=== PATIENT | female | born 1960 | race American Indian/Alaskan Native ===

== ENCOUNTER 2016-12-27 20:41 | Inpatient (IN) | payer SELFPAY ==
[2016-12-27 22:09] LABS: Basophils % (Auto) 0.8 % (0.0-1.8); Eosinophils % (Auto) 0.9 % (0.0-4.3); Hemoglobin 10.1 gm/dl (10.1-14.3); Mean Corpuscular HGB Conc 33 % (30-34); Mean Corpuscular Hemoglobin 32 pg (28-32); Mean Corpuscular Volume 97 fl (79-97); Platelet Count 133 K/mm3 (140-440); Red Blood Count 3.19 M/mm3 (3.65-5.03); Red Cell Distribution Width 16.1 % (13.2-15.2)
[2016-12-27 22:12] LABS: INR 0.98 (0.87-1.13)
--- NOTE | 2016-12-27 22:14 | Cat Scan Report ---
FINAL REPORT PROCEDURE: CT HEAD/BRAIN WO CON TECHNIQUE: Computerized tomography of the head was performed without contrast material. HISTORY: suspected stroke COMPARISON: No prior studies are available for comparison. FINDINGS: Skull and scalp: There is focal left posterior scalp swelling or soft tissue thickening. There is no skull fracture.. Paranasal sinuses: Normal. Ventricles and subarachnoid spaces: There is mild central and cortical atrophy. There is no hydrocephalus or asymmetry.. Cerebrum: No evidence of hemorrhage, acute infarction or mass . Cerebellum and brainstem: No evidence of hemorrhage, acute infarction or mass. Vasculature: Normal. Comments: There is mild chronic deep white matter ischemic gliosis bilaterally.. IMPRESSION: Left posterior scalp swelling. There is no skull fracture. There is age-appropriate involutional change. There is no hemorrhage, edema, mass, mass effect or midline shift.
[2016-12-27 22:16] LABS: Anion Gap 24 mmol/L; Blood Urea Nitrogen 9 mg/dL (7-17); Calcium 8.6 mg/dL (8.4-10.2); Carbon Dioxide 20 mmol/L (22-30); Chloride 93.5 mmol/L (98-107); Glucose 79 mg/dL (65-100); Potassium 4.1 mmol/L (3.6-5.0); Sodium 133 mmol/L (137-145)
[2016-12-27 22:22] LABS: Creatine Kinase 125 units/L (30-135)
[2016-12-27 23:23] LABS: Urine Drugs of Abuse Note Disclamer
[2016-12-28 00:22] LABS: Bacteria,Urine 1+ /HPF (Negative); Bilirubin,Urine NEG (Negative); Blood,Urine NEG (Negative); Ketones,Urine NEG (Negative); Leukocyte Esterase,Urine NEG (Negative); Mucus,Urine FEW /HPF; Nitrite,Urine NEG (Negative); Protein,Urine <15 mg/dL mg/dL (Negative); Urobilinogen,Urine < 2.0 mg/dL (<2.0); WBC,Urine < 1.0 /HPF (0.0-6.0)
--- NOTE | 2016-12-28 00:40 | Emergency Department Report ---
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 On exam patient is awake alert and oriented 3 not in acute distress. States that she was eating dinner with her roommate around 4 PM. pt remembers waking up and states that her roommate informed her that she had lost consciousness for anywhere from 15-20 minutes at which point they called the ambulance. Patient states she had been drinking earlier. Denies any chest pain palpitations shortness of breath though states she has had some tingling sensation in her left upper extremity. Patient is not accompanied by any family members. She denies any abdominal pain nausea vomiting any dysuria or increased urinary frequency. Patient does state that approximately a week and a half ago she fell outside of her home and hit the back of her head and has had small lump on the back of her head since. Denies any bleeding or pus drainage from site. Denies any other drug use other than alcohol today and marijuana earlier this week. pt states she feels slightly intoxicated. I asked patient to see if she has any family contact subjective contact at this time patient states she does not. Patient states she has a daughter that lives in [place] but does not wish for her to be contacted. Timing/Prior Episodes: single episode today Precipitating Factors: Positive: injury, recent head trauma (and states she fell outside of her home week and a half ago and hit the back of her head) Loss of Consciousness: prolonged (minutes) (15-20 minutes possibly as per pt) Current Symptoms: back to normal - Related Data Allergies/Adverse Reactions: Allergies No Known Allergies Allergy (Verified 12/27/16 21:12) Home Medications: Ambulatory Orders No Known Home Medications [No Reported Home Medications] 12/27/16 ED Review of Systems ROS: Stated complaint: POSS TIA/ETOH Other details as noted in HPI Constitutional: denies: chills, fever Eyes: denies: eye pain, eye discharge, vision change ENT: as per HPI (patient states she fell a week and a half ago and hit the back of her head in her driveway). denies: ear pain, throat pain Respiratory: denies: cough, shortness of breath, wheezing Cardiovascular: denies: chest pain, palpitations Endocrine: no symptoms reported Gastrointestinal: denies: abdominal pain, nausea, diarrhea Genitourinary: denies: urgency, dysuria, discharge Musculoskeletal: denies: back pain, joint swelling, arthralgia Skin: denies: rash, lesions Neurological: denies: headache, weakness, paresthesias Psychiatric: denies: anxiety, depression Hematological/Lymphatic: denies: easy bleeding, easy bruising ED Past Medical Hx - Past Medical History Previous Medical History?: Yes Additional medical history: stroke 2 years ago left side deficit - Surgical History Past Surgical History?: No - Social History Smoking Status: Never Smoker Substance Use Type: Alcohol - Medications Home Medications: Home Medications Medication Instructions Recorded Confirmed Last Taken Type No Known Home Medications [No 12/27/16 12/27/16 Unknown History Reported Home Medications] ED Physical Exam - General Limitations: No Limitations General appearance: alert, in no apparent distress - Head Head exam: Present: other (small abscess/hematoma with open head parietal temporal region back of scalp) - Expanded Head Exam Expanded Head exam: Present: other (H and has a small open abscess in the posterior temporal parietal region. Approximately the size of a quarter 2-3 cm in diameter open head draining, slight purulent drainage.) - Eye Eye exam: Present: normal appearance, PERRL, EOMI - ENT ENT exam: Present: mucous membranes moist - Neck Neck exam: Present: normal inspection, full ROM - Respiratory Respiratory exam: Present: normal lung sounds bilaterally. Absent: respiratory distress - Cardiovascular Cardiovascular Exam: Present: regular rate, normal rhythm. Absent: systolic murmur, diastolic murmur, rubs, gallop - GI/Abdominal GI/Abdominal exam: Present: soft, normal bowel sounds - Extremities Exam Extremities exam: Present: normal inspection - Back Exam Back exam: Present: normal inspection - Neurological Exam Neurological exam: Present: alert, oriented X3, CN II-XII intact, abnormal gait (antalgic gait) - Expanded Neurological Exam Expanded Patient oriented to: Present: person, place, time Speech: Present: fluid speech Cranial nerves: EOM's Intact: Normal, Tongue Deviation: Normal, Facial Sensation : Normal Cerebellar function: Finger to Nose: Abnormal Left, Heel to Quinones: Abnormal Left , Romberg: Abnormal Left Motor strength exam: RUE: 5, LUE: 3, RLE: 5, LLE: 4 Best Eye Response (Philip): (4) open spontaneously Best Motor Response (Argyle): (6) obeys commands Best Verbal Response (Philip): (5) oriented Argyle Total: 15 - Psychiatric Psychiatric exam: Present: normal affect, normal mood - Skin Skin exam: Present: warm, dry, intact, normal color. Absent: rash ED Course Vital Signs 12/27/16 12/27/16 12/28/16 21:14 23:24 01:28 Temperature 98 F Pulse Rate 96 H 80 87 Respiratory 16 16 16 Rate Blood Pressure 142/98 Blood Pressure 136/103 105/73 [Right] O2 Sat by Pulse 95 96 96 Oximetry ED Medical Decision Making - Lab Data Result diagrams: 12/27/16 21:35 12/27/16 21:35 - Medical Decision Making A/P: Syncopal episode, alcohol intoxication, 1- CT head shows no new infarct or hemorrhage. at baseline has left upper extremity mild weakness secondary to her CVA in 2014 2- x-ray shows no infiltrates, possible mild atelectasis 3- positive alcohol level, 0.37, troponin negative 2, urine drug screen unremarkable. She denies any history of DTs or seizures associated with alcohol withdrawal, states she has no history of alcohol withdrawal 4- is discussed with and the hospitalist Dr. Clemons 5- EKG shows no STEMI 6- to be admitted for syncopal episode, possibly secondary to alcohol intoxication given patient's age is true CVA and risk factors will admit for observation and possible advanced cardiac 7-small abscess in back of scalp incised, wound culture sent, minimal to no drainage and no significant surrounding cellulitis on clinical exam 8- patient states that her roommate is an elderly person we should not contact at this time and states she does not want her daughter who lives in [place] contacted states there are personal reasons why but refuses to divulge more information Critical care attestation.: If time is entered above; I have spent that time in minutes in the direct care of this critically ill patient, excluding procedure time. ED Disposition Clinical Impression: Scalp abscess Syncope Qualifiers: Syncope type: unspecified Qualified Code(s): R55 - Syncope and collapse Alcohol intoxication Qualifiers: Complication of substance-induced condition: with unspecified complication Qualified Code(s): F10.929 - Alcohol use, unspecified with intoxication, unspecified Disposition: OP ADMITTED IP TO THIS HOSP Is pt being admited?: Yes Does the pt Need Aspirin: No Condition: Stable Instructions: Syncope (ED) Referrals: PRIMARY CARE,MD [Primary Care Provider] - 3-5 Days
[2016-12-28] MEDS ORDERED: XYLOCAINE 2%/EPI 1:100,000 INFILTRATI ONE (01:32)
--- NOTE | 2016-12-28 01:49 | XRay Report ---
FINAL REPORT EXAM: XR CHEST 1V AP HISTORY: stroke workup COMPARISON: None available. FINDINGS: Frontal view(s) of the chest obtained. Cardiac silhouette within normal limits. Mild linear atelectasis at the left lung base. Lungs otherwise clear. No pneumothorax. IMPRESSION: Mild linear atelectasis at the left lung base. Lungs otherwise clear.
[2016-12-28] MEDS ORDERED: TYLENOL PO PRN (02:17)
[2016-12-28] MEDS ORDERED: ZOFRAN IV PRN (02:19)
[2016-12-28] MEDS ORDERED: TYLENOL PO ONE (02:26)
[2016-12-28] MEDS: 1: FOLVITE 1 MG, INFUVITE 10 ML, VITAMIN B-1 100 MG in NACL 0.9% 1000 ML 988.8 ML 2: NA IV SCH ×3 (04:50→23:55)
--- NOTE | 2016-12-28 08:09 | History and Physical Report ---
CHIEF COMPLAINT: Syncopal attack. Other complaint includes tingling sensation in the left arm. HISTORY OF PRESENT ILLNESS: The patient is a 56-year-old female who states she was told that she passed out while she was eating with a roommate and states she passed out for about 15 to 20 minutes. The patient also admitted to drinking a lot of alcohol prior to the syncopal episode and also admitted to using marijuana some days back prior to the day of syncopal attack. There was no history of chest pain. No history of shortness of breath. No history of fever, nausea, or vomiting. The patient also noted that about 1 week ago she fell down and sustained some bruises on the back of the head with some swelling; however, she said there was no bleeding after she fell and there was also no loss of consciousness then. PAST MEDICAL HISTORY: Pertinent for CVA. Also, the patient's past medical history is pertinent for alcohol abuse and marijuana abuse. SOCIAL HISTORY: The patient drinks alcohol on a regular basis. Uses illicit drug, notably marijuana. Does not smoke cigarette. FAMILY HISTORY: Noncontributory. MEDICATIONS: The patient is not on any medication. ALLERGIES: There are no known drug allergies. REVIEW OF SYSTEMS: CONSTITUTIONAL: There is no fever, no chills, no diaphoresis. HEENT: There is no headache or sore throat. CARDIOVASCULAR: There is no chest pain, orthopnea. RESPIRATORY: There is no shortness of breath or cough. GASTROINTESTINAL: There is no nausea, no vomiting, no abdominal pain, diarrhea, or constipation. NEUROLOGICAL: Syncopal attack noted. Tingling on the left upper extremity noted. There is ____ altered mental status during the syncopal episode. There is no speech impairment and there is no blurring of vision. MUSCULOSKELETAL: There is no joint pain or swelling. DERMATOLOGICAL: There is no skin rash or itching. GENITOURINARY: There is no dysuria, hematuria, or flank pain. Rest of system review is normal. PHYSICAL EXAMINATION: GENERAL: At the time of exam, the patient was found to be alert, oriented x3 and not in acute distress. VITAL SIGNS: Show temperature of 98 degrees Fahrenheit, pulse of 96, respirations 16, pulse ox of 95% and blood pressure of 142/98. HEENT: Pupils appear to be equal, round, and reactive to light and accommodation. Extraocular muscles are intact. NECK: Supple with no JVD or carotid bruit. CARDIOVASCULAR: Shows first and second heart sounds with no gallops or murmur. RESPIRATORY: Showed good air entry on both sides of the lung with no abnormal breath sounds. GASTROINTESTINAL: Show abdomen to be full, soft, nontender with no organomegaly or rigidity. NEUROLOGICAL: Shows no new focal deficit. MUSCULOSKELETAL: Shows no joint swelling or tenderness. DERMATOLOGICAL: Shows no skin rash. GENITOURINARY: Shows no costovertebral angle tenderness. PERTINENT LABORATORY AND IMAGING STUDIES: The patient had CT of the head done that shows left posterior scalp swelling with no evidence of fracture. There is finding of age-appropriate involutional changes. There is no hemorrhage. No edema. No mass effect or midline shift. Also, the patient had chest x-ray done that shows mild linear atelectasis at the left lung base. Otherwise, no other lesion was found. The patient had CBC done with normal white count, normal hemoglobin, and normal hematocrit. CBC differential shows a high lymphocyte count. Chemistry shows slightly decreased sodium of 133 and low chloride of 93.5 and low CO2 of 20 with normal BUN and creatinine and normal GFR. The patient's urinalysis was unremarkable. The patient's alcohol level was high with a value of 0.34. DIAGNOSES: 1. Syncope. 2. Alcohol intoxication. PLAN: 1. The patient will be admitted to medical floor and will have echocardiogram done in the morning. The patient will also have bilateral carotid Doppler done in the morning and will be on banana bag, 1 L to be given once daily. The patient will have cardiac enzymes checked q. 6 hours x2 more level and will be on Tylenol 650 mg every 4 hours for fever and headache. 2. Cellulitis at the back of the head, so the ceftriaxone or Rocephin will be 1 g daily for treatment of the cellulitis at the back of the head. The patient will have alcohol level checked in the morning and will be on IV Zofran 4 mg every 6 hours as needed for nausea and vomiting. The patient will be on oxygen by nasal cannula 2 L per minute. The patient's home medications will be reconciled and ____. JOB# [id number] OCN/NTS
[2016-12-28 08:10] LABS: Creatine Kinase MB 1.7 ng/mL (0.0-4.0)
[2016-12-28 08:12] LABS: Creatine Kinase 119 units/L (30-135)
[2016-12-28] MEDS: ROCEPHIN/NS 1 GM/50 ML 1 GM/50 ML BAG IV SCH (12:00)
[2016-12-28 15:22] LABS: Creatine Kinase MB 1.5 ng/mL (0.0-4.0)
[2016-12-28 15:24] LABS: Creatine Kinase 140 units/L (30-135)
[2016-12-28] MEDS ORDERED: HALDOL IV PRN (16:17)
[2016-12-28] MEDS ORDERED: ATIVAN IV PRN ×2 (16:17)
--- NOTE | 2016-12-28 16:17 | Progress Note ---
Assessment and Plan Assessment and plan: 56-year-old female presents after syncopal episode from alcohol intoxication. Resolving. EtOH level 3.4 - Patient Problems (1) Alcohol intoxication Current Visit: Yes Status: Acute Qualifiers: Complication of substance-induced condition: with unspecified complication Qualified Code(s): F10.929 - Alcohol use, unspecified with intoxication, unspecified Plan to address problem: Patient will alcohol intoxication appears to be improving. Will need to be aggressive patient possibly going into DTs with elevated blood pressure. We'll start patient on CIWA protocol start patient on amlodipine 5 mg by mouth daily (2) Scalp abscess Current Visit: Yes Status: Acute Plan to address problem: Scalp abscess does not need any sutures is not up. Have any abscess or cellulitis there appears to be an acute local wound (3) Syncope Current Visit: Yes Status: Acute Qualifiers: Syncope type: unspecified Encounter type: E Qualified Code(s): R55 - Syncope and collapse Plan to address problem: Secondary to EtOH current workup unremarkable. History Interval history: Patient laying in bed status post syncopal episode after increase alcohol use. Upon evaluation the patient at bedside appears to be in the beginning of DTs or withdrawal. Patient's blood pressure has increased to 175/80 and 190/98. Patient has had more pressure speech but still appears calm. Patient has drank for quite some time and does state that she gets a funny feeling if she stops drinking. We'll be aggressive at this time and start patient on CIWA protocol. We'll also treat blood pressure with amlodipine 5 mg 1 tab by mouth daily.. Hospitalist Physical - Constitutional Vitals: Temp Pulse Resp BP Pulse Ox 99.3 F 91 H 16 175/81 99 12/28/16 14:11 12/28/16 15:00 12/28/16 15:00 12/28/16 15:00 12/28/16 14:11 General appearance: Present: mild distress - EENT Eyes: Present: PERRL, EOM intact ENT: hearing intact, clear oral mucosa, dentition normal, other (small horizontal laceration in the suprarenal region no cellulitis just local injury.) - Neck Neck: Present: supple, normal ROM - Respiratory Respiratory effort: normal Respiratory: bilateral: CTA - Cardiovascular Rhythm: regular Heart Sounds: Present: S1 & S2 - Extremities Extremities: no ischemia, pulses intact, pulses symmetrical, No edema, normal temperature, normal color Peripheral Pulses: within normal limits - Abdominal General gastrointestinal: soft, non-tender, non-distended, no hypoactive bowel sounds, no hepatomegaly, no splenomegaly, no mass - Psychiatric Psychiatric: appropriate mood/affect, agitated - Neurologic Neurologic: CNII-XII intact, moves all extremities Results - Labs CBC & Chem 7: 12/27/16 21:35 12/27/16 21:35 Labs: Laboratory Last Values WBC 5.0 K/mm3 (4.5-11.0) 12/27/16 21:35 RBC 3.19 M/mm3 (3.65-5.03) L 12/27/16 21:35 Hgb 10.1 gm/dl (10.1-14.3) 12/27/16 21:35 Hct 31.0 % (30.3-42.9) 12/27/16 21:35 MCV 97 fl (79-97) 12/27/16 21:35 MCH 32 pg (28-32) 12/27/16 21:35 MCHC 33 % (30-34) 12/27/16 21:35 RDW 16.1 % (13.2-15.2) H 12/27/16 21:35 Plt Count 133 K/mm3 (140-440) L 12/27/16 21:35 Lymph % (Auto) 46.0 % (13.4-35.0) H 12/27/16 21:35 [place] % (Auto) 7.5 % (0.0-7.3) H 12/27/16 21:35 Eos % (Auto) 0.9 % (0.0-4.3) 12/27/16 21:35 Baso % (Auto) 0.8 % (0.0-1.8) 12/27/16 21:35 Lymph # 2.3 K/mm3 (1.2-5.4) 12/27/16 21:35 [place] # 0.4 K/mm3 (0.0-0.8) 12/27/16 21:35 Eos # 0.0 K/mm3 (0.0-0.4) 12/27/16 21:35 Baso # 0.0 K/mm3 (0.0-0.1) 12/27/16 21:35 Seg Neutrophils % 44.8 % (40.0-70.0) 12/27/16 21:35 Seg Neutrophils # 2.3 K/mm3 (1.8-7.7) 12/27/16 21:35 PT 12.9 Sec. (12.2-14.9) 12/27/16 21:35 INR 0.98 (0.87-1.13) 12/27/16 21:35 APTT 29.0 Sec. (24.2-36.6) 12/27/16 21:35 Thrombin Time 17.1 Sec. (15.1-19.6) 12/27/16 21:35 Sodium 133 mmol/L (137-145) L 12/27/16 21:35 Potassium 4.1 mmol/L (3.6-5.0) 12/27/16 21:35 Chloride 93.5 mmol/L (98-107) L 12/27/16 21:35 Carbon Dioxide 20 mmol/L (22-30) L 12/27/16 21:35 Anion Gap 24 mmol/L 12/27/16 21:35 BUN 9 mg/dL (7-17) 12/27/16 21:35 Creatinine 1.0 mg/dL (0.7-1.2) 12/27/16 21:35 Estimated GFR > 60 ml/min 12/27/16 21:35 BUN/Creatinine Ratio 9.00 % 12/27/16 21:35 Glucose 79 mg/dL (65-100) 12/27/16 21:35 POC Glucose 71 (70-105) 12/28/16 11:52 Calcium 8.6 mg/dL (8.4-10.2) 12/27/16 21:35 Total Creatine Kinase 140 units/L (30-135) H 12/28/16 14:47 CK-MB (CK-2) 1.5 ng/mL (0.0-4.0) 12/28/16 14:47 CK-MB (CK-2) Rel Index 1.0 (0-4) 12/28/16 14:47 Troponin T < 0.010 ng/mL (0.00-0.029) 12/28/16 14:47 Urine Color Straw (Yellow) 12/27/16 23:00 Urine Turbidity Clear (Clear) 12/27/16 23:00 Urine pH 5.0 (5.0-7.0) 12/27/16 23:00 Ur Specific [place] 1.004 (1.003-1.030) 12/27/16 23:00 Urine Protein <15 mg/dl mg/dL (Negative) 12/27/16 23:00 Urine Glucose (UA) Neg mg/dL (Negative) 12/27/16 23:00 Urine Ketones Neg mg/dL (Negative) 12/27/16 23:00 Urine Blood Neg (Negative) 12/27/16 23:00 Urine Nitrite Neg (Negative) 12/27/16 23:00 Urine Bilirubin Neg (Negative) 12/27/16 23:00 Urine Urobilinogen < 2.0 mg/dL (<2.0) 12/27/16 23:00 Ur Leukocyte Esterase Neg (Negative) 12/27/16 23:00 Urine WBC (Auto) < 1.0 /HPF (0.0-6.0) 12/27/16 23:00 Urine RBC (Auto) 0.0 /HPF (0.0-6.0) 12/27/16 23:00 Urine Bacteria (Auto) 1+ /HPF (Negative) 12/27/16 23:00 Urine Mucus Few /HPF 12/27/16 23:00 Urine Opiates Screen Presumptive negative 12/27/16 23:00 Urine Methadone Screen Presumptive negative 12/27/16 23:00 Ur Barbiturates Screen Presumptive negative 12/27/16 23:00 Ur Phencyclidine Scrn Presumptive negative 12/27/16 23:00 Ur Amphetamines Screen Presumptive negative 12/27/16 23:00 U Benzodiazepines Scrn Presumptive negative 12/27/16 23:00 Urine Cocaine Screen Presumptive negative 12/27/16 23:00 U Marijuana (THC) Screen Presumptive negative 12/27/16 23:00 Drugs of Abuse Note Disclamer 12/27/16 23:00 Plasma/Serum Alcohol 0.11 gm% (0-0.07) H 12/28/16 07:32 - Imaging and Cardiology Chest x-ray: image reviewed
[2016-12-28] MEDS ORDERED: NORVASC PO ONE ×2 (16:18→19:00)
[2016-12-28] MEDS: PROTONIX IV SCH (21:55)
[2016-12-28] MEDS ORDERED: NACL 0.9% 1000 ML 1,000 ML IV SCH (23:00)
[2016-12-29] MEDS: 1: FOLVITE 1 MG, INFUVITE 10 ML, VITAMIN B-1 100 MG in NACL 0.9% 1000 ML 988.8 ML 2: NA IV SCH ×2 (03:54→12:50)
--- NOTE | 2016-12-29 10:37 | Discharge Summary ---
Providers - Providers Date of Admission: 12/28/16 02:27 Date of discharge: 12/29/16 Attending physician: JULIO CALVILLO Primary care physician: RECEIVING OPERATOR Hospitalization Condition: Good Pertinent studies: CT scan of head unremarkable. Echocardiogram ejection fraction 65%. Wound culture had no growth. Hospital course: A Chin presented with presyncopal episode secondary to alcohol alcohol intoxication. Patient blood levels were 0.34 and came down to 0.1 after aggressive hydration. Patient felt better electrolytes replaced. Patient educated on alcohol cessation. Patient hit the back of head with fall. Had superficial wound did not require surgical intervention. CT scan head unremarkable. Patient was treated for local sepsis to the area. We'll continue antibodies for another 3 days. Disposition: DISCHARGED TO HOME OR SELFCARE - Discharge Diagnoses (1) Alcohol intoxication Status: Acute Qualifiers: Complication of substance-induced condition: with unspecified complication Qualified Code(s): F10.929 - Alcohol use, unspecified with intoxication, unspecified Comment: Alcohol intoxication resolved workup negative patient be discharged today. (2) Scalp abscess Status: Acute Comment: Scalp cellulitis by mouth anabiotic's. (3) Syncope Status: Acute Qualifiers: Syncope type: unspecified Encounter type: E Qualified Code(s): R55 - Syncope and collapse Comment: To be secondary to alcoholic intoxication. Workup negative. (4) Hypertension Status: Acute Qualifiers: Hypertension type: H Comment: I pretension could be chronic. Versus chronic alcohol use. Patient given beta romelia and blood pressure fairly well-controlled can further titrate as outpatient with primary care physician. Dr. Fernandez. Core Measure Documentation - Palliative Care Palliative Care/ Comfort Measures: Not Applicable - Core Measures Any of the following diagnoses?: none Exam - Constitutional Vitals: Temp Pulse Resp BP Pulse Ox 98.3 F 80 18 170/90 98 12/29/16 03:55 12/29/16 03:55 12/29/16 03:55 12/29/16 03:55 12/29/16 03:55 General appearance: Present: no acute distress, well-nourished - EENT ENT: other (superficial laceration bicipital region of head. Discharge) - Neck Neck: Present: supple, normal ROM - Respiratory Respiratory effort: normal - Cardiovascular Heart Sounds: Present: S1 & S2. Absent: rub, click - Extremities Extremities: pulses symmetrical, No edema Peripheral Pulses: within normal limits - Abdominal General gastrointestinal: Present: soft, non-tender, non-distended, normal bowel sounds Female genitourinary: Present: deferred - Integumentary Integumentary: Present: clear, warm, dry - Musculoskeletal Musculoskeletal: gait normal, strength equal bilaterally - Psychiatric Psychiatric: appropriate mood/affect, intact judgment & insight - Neurologic Neurologic: CNII-XII intact, moves all extremities Plan Activity: no restrictions Weight Bearing Status: Full Weight Bearing Diet: regular Wound: keep clean and dry Special Instructions: no heavy lifting, other (avoid alcohol.) Follow up with: PRIMARY CARE, [Primary Care Provider] - 3-5 Days
[2016-12-29] MEDS: PROTONIX IV SCH (12:49)
[2016-12-29] MEDS: ROCEPHIN/NS 1 GM/50 ML 1 GM/50 ML BAG IV SCH (12:50)
[2016-12-29 14:23] VITALS: BP 165/86
== END 2016-12-29 14:30 | disposition home or self-care (01) | DRG 872 ==
LOC: ED 20:41 → 4A 12-28 02:27
PROVIDERS: ADMIT Internal Medicine; ATTEND Internal Medicine
DX: A41.9 Sepsis, unspecified organism (principal); L02.811 Cutaneous abscess of head [any part, except face]; L03.811 Cellulitis of head [any part, except face]; R55 Syncope and collapse; Z86.73 Personal history of transient ischemic attack (TIA), and cerebral infarction without residual deficits; F12.10 Cannabis abuse, uncomplicated; Y90.1 Blood alcohol level of 20-39 mg/100 ml; F10.129 Alcohol abuse with intoxication, unspecified; Z71.41 Alcohol abuse counseling and surveillance of alcoholic
CPT/HCPCS: 36415; 70450; 71010; 80048; 80307; 80320; 81001; 82550; 82553; 82962; 84484; 85025; 85610; 85670; 85730; 87116; 93005; 93010; 93306; 99285; C9113; G0480; J0696; J3411; J7030